=== PATIENT | male | born 1965 | race American Indian/Alaskan Native ===

== ENCOUNTER 2019-04-29 11:17 | Inpatient (IN) | payer OTHER ==
[2019-04-29] VITALS (16 sets, daily range): BP systolic 117–164; BP diastolic 49–96
[~2019-04-29] VITALS: Ht 190.5 cm; Wt 170.0 kg
[2019-04-29] MEDS ORDERED: diphenhydrAMINE 50 mg/ml inj IV ONE (12:25)
[2019-04-29] MEDS ORDERED: metoclopramide 5 mg/ml inj IV ONE (12:25)
[2019-04-29] MEDS ORDERED: glycopyrrolate 0.2mg/ml inj IV ONE (12:25)
[2019-04-29] MEDS ORDERED: ketorolac trometh. 30mg/ml inj. IV ONE (12:25)
[2019-04-29] MEDS ORDERED: normal saline 1000ML IV soln IVB ONE ×2 (12:25)
[2019-04-29 12:29] LABS: BASOPHILS % (AUTO) 0.2 % (0-1); EOSINOPHILS % (AUTO) 0.1 % (0-6); HEMATOCRIT 43.8 % (42.0-52.0); HEMOGLOBIN 14.7 g/dl (14.0-17.9); LYMPHOCYTES # (AUTO) 1.9 X10'3 (1.1-4.8); LYMPHOCYTES % (AUTO) 10.5 % (21-51); MEAN CORPUSCULAR HGB CONC 33.5 g/dL (33.0-36.5); MEAN CORPUSCULAR VOLUME 83.7 FL (78-98); MEAN PLATELET VOLUME 7.5 FL (7.4-10.4); MONOCYTES # (AUTO) 0.7 X10'3 (0-0.9); MONOCYTES % (AUTO) 3.9 % (2-12); NEUTROPHILS % (AUTO) 85.3 % (42-75); PLATELET COUNT 411 X10'3 (140-440); RED BLOOD COUNT 5.23 X10'6 (4.70-6.10); RED CELL DISTRIBUTION WIDTH 14.4 % (11.5-14.5); WHITE BLOOD COUNT 17.6 X10'3 (4.5-11.0)
[2019-04-29 12:39] LABS: ALANINE AMINOTRANSFERASE 62 U/L (12-78); ALBUMIN 3.6 G/DL (3.4-5.0); ALBUMIN/GLOBULIN RATIO 0.8 (1.1-1.5); ALKALINE PHOSPHATASE 104 IU/L (46-116); ANION GAP 11 (8-16); ASPARTATE AMINO TRANSFERASE 33 U/L (10-37); BILIRUBIN,TOTAL 0.6 MG/DL (0.1-1.0); BLOOD UREA NITROGEN 10 MG/DL (7-18); BUN/CREATININE RATIO 10.6 (5.4-32.0); CHLORIDE 100 MMOL/L (99-107); CREATININE 0.94 MG/DL (0.60-1.10); GLUCOSE 148 MG/DL (70-104); LIPASE 88 U/L (73-393); POTASSIUM 4.2 MMOL/L (3.5-5.1); SODIUM 136 MMOL/L (135-145); TOTAL CARBON DIOXIDE 25.1 MMOL/L (24-32); eGFR 85 ML/MIN
[2019-04-29] MEDS ORDERED: piperacillin/tazo 3.375gm/50ml 50 ML IV ONE (12:50)
[2019-04-29] MEDS ORDERED: iohexol 300mg/ml 100ml inj. ONE (13:02)
--- NOTE | 2019-04-29 13:09 | NUR ---
PT TO CT
[2019-04-29] MEDS: MESSAGE TO NURSING PO NR (13:15)
[2019-04-29] MEDS: normal saline 1000ml 1,000 ML IV SCH (14:14)
[2019-04-29] MEDS ORDERED: ondansetron/PF 4mg/2ml inj IV PRN ×3 (14:15→18:50)
[2019-04-29] MEDS ORDERED: magnesium 2GM in 50ml NS 50 ML IV PRN (14:15)
[2019-04-29] MEDS ORDERED: HYDROcodone/acetaminophen 5mg/325mg tablet PO PRN (14:15)
[2019-04-29] MEDS ORDERED: mag hydrox/Alum hydrox/simeth 30ml oral suspension PO PRN (14:15)
[2019-04-29] MEDS ORDERED: potassium CL 10mEq/100ml bag 100 ML IV PRN ×2 (14:15)
[2019-04-29] MEDS ORDERED: magnesium hydroxide 30ml (MOM) UD suspension PO PRN (14:15)
[2019-04-29] MEDS ORDERED: acetaminophen 325mg tablet PO PRN ×2 (14:15)
[2019-04-29] MEDS ORDERED: morphine 2 MG/ML inj. syringe IV PRN ×2 (14:15)
[2019-04-29] MEDS ORDERED: magnesium 4gm in 100ml NS 100 ML IV PRN (14:15)
[2019-04-29] MEDS ORDERED: potassium Cl 20 mEq SR tablet PO PRN ×2 (14:15)
[2019-04-29] MEDS ORDERED: magnesium Cl slow-release 64mg tablet PO PRN (14:15)
[2019-04-29] MEDS ORDERED: METO25TA6 PO (14:47)
[2019-04-29] MEDS ORDERED: BUSP15TA3 PO (14:47)
[2019-04-29] MEDS ORDERED: POTA20TA19 PO (14:47)
[2019-04-29] MEDS ORDERED: METF-950 PO (14:47)
[2019-04-29] MEDS ORDERED: GABA600T13 PO (14:47)
[2019-04-29] MEDS ORDERED: MULT1TAB74 PO (14:47)
[2019-04-29] MEDS ORDERED: FURO40TA4 PO (14:47)
[2019-04-29 15:29] LABS: CLARITY,URINE CLEAR (Clear); COLOR,URINE YELLOW (Yellow); GLUCOSE, URINE NEGATIVE (Neg); KETONES,URINE NEGATIVE (Neg); LEUKOCYTE ESTERASE ,URINE NEGATIVE (Neg); NITRITES, URINE NEGATIVE (Neg); OCCULT BLOOD,URINE TRACE-INTACT (Neg); PH,URINE 5.5 (4.8-8.0); PROTEIN,URINE NEGATIVE (Neg); UROBILINOGEN,URINE 0.2 E.U/dL (0.2-1.0)
[2019-04-29 15:34] LABS: UA COLLECTION TYPE CLN CATCH MIDSTREAM
[2019-04-29 15:35] LABS: BACTERIA,URINE FEW /HPF (Neg); MUCUS STRANDS FEW /LPF (Neg); RBC,URINE 0-2 /HPF (0-2); SQUAMOUS EPITHELIAL CELL,UR FEW /LPF (FEW); WBC,URINE 0-4 /HPF (0-4)
[2019-04-29] MEDS ORDERED: proCHLORperazine 10 MG/2 ml inj IV PRN (16:25)
[2019-04-29] MEDS ORDERED: meperidine/PF 25mg/ml syringe IV PRN ×3 (16:25)
[2019-04-29] MEDS ORDERED: morphine 4 MG/ML inj SYRINge IV PRN ×2 (16:25)
[2019-04-29] MEDS ORDERED: ringers solution, lacted 1,000 ML IV SCH (16:25)
[2019-04-29] MEDS ORDERED: BUPIVAcaine/PF 2.5 mg/ml (0.25%) 30ml vial ONE (16:30)
[2019-04-29] MEDS ORDERED: ceFAZolin 1000mg inj ONE (16:30)
[2019-04-29] MEDS ORDERED: fentaNYL/PF 50MCG/1 ML 2ML syringe ONE ×2 (16:35→17:35)
[2019-04-29] MEDS ORDERED: midazolam 2 mg/2 ml injection ONE (16:36)
[2019-04-29] MEDS ORDERED: LIDOcaine 2% (20mg/ml) 5ml vial ONE (16:37)
[2019-04-29] MEDS ORDERED: propofol inj 20 ML IV ONE (16:37)
[2019-04-29] MEDS ORDERED: dexamethasone sod phosphate 10mg/ml inj ONE (17:00)
[2019-04-29] MEDS ORDERED: acetaminophen 1000 MG/100ml vial IV ONE (17:00)
[2019-04-29] MEDS ORDERED: desflurane 240ml liquid inh. IH ONE (17:00)
[2019-04-29] MEDS ORDERED: rocuronium 10mg/ml inj IV ONE (17:19)
[2019-04-29] MEDS ORDERED: ketorolac trometh. 30mg/ml inj. ONE (17:26)
[2019-04-29] MEDS ORDERED: ondansetron/PF 4mg/2ml inj ONE (17:26)
[2019-04-29] MEDS ORDERED: ceFOXitin 1000 MG inj ONE ×2 (17:27)
[2019-04-29] MEDS ORDERED: ceFOXitin 2 GM ADDVANTGE BAG 50 ML IV ONE (17:29)
--- NOTE | 2019-04-29 19:19 | NUR ---
ADMITTED TO PACU FROM OR ACCOMPANIED BY ANESTHESIA. INTIAL PHYSICAL ASSESSMENT DONE AND RECORDED. REPORT RECEIVED FROM ANESTHESIA.
[2019-04-29] MEDS: K and/or MAG REPLACEMENT MC SCH (20:00)
[2019-04-29] MEDS ORDERED: heparin, porcine 5000 units/ml vial SQ SCH (20:00)
--- NOTE | 2019-04-29 20:00 | NUR ---
pt arrived to floor, in no apparent distress. VSS, call light in reach, 2x rails up, BLL. will continue to monitor
--- NOTE | 2019-04-29 20:05 | NUR ---
PACU DISCHARGE CRITERIA MET, REPORT GIVEN TO FLOOR. DENIES PAIN OR DISCOMFORT, TRANSFERRED TO ROOM IN STABLE GOOD CONDITION.
[2019-04-29] MEDS ORDERED: MESSAGE TO PHARMACY PO ONE (20:45)
[2019-04-29] MEDS ORDERED: glucagon, human recombinant 1mg kit SUBCUT PRN (20:45)
[2019-04-29] MEDS ORDERED: dextrose ORAL solution 15 GM/59 ML bottle PO PRN ×2 (20:45)
[2019-04-29] MEDS ORDERED: insulin Lispro (HumaLOG) vial - multi-dose SQ SCH (20:45)
[2019-04-29] MEDS ORDERED: dextrose 50%-water 50ml dispensing syringe IV PRN ×2 (20:45)
[2019-04-29] MEDS: insulin glargine (Lantus) pen - multi-dose SQ SCH (21:00)
[2019-04-29] MEDS ORDERED: busPIRone 15mg tablet PO ONE (21:05)
[2019-04-29] MEDS ORDERED: metoprolol tartrate 25mg tablet PO ONE (21:05)
[2019-04-29] MEDS: gabapentin 300mg capsule PO SCH (21:16)
[2019-04-29 21:17] LABS: HEMOGLOBIN A1C 6.8 % (4.5-6.2)
[2019-04-29] MEDS: piperacillin/tazo 3.375gm/50ml 50 ML IV SCH (21:17)
[2019-04-29] MEDS ORDERED: ASPI-1265 PO (23:44)
[2019-04-29] MEDS ORDERED: FIBER PO (23:44)
[2019-04-30] VITALS: BP 133/58
[2019-04-30] MEDS ORDERED: piperacillin/tazo 3.375gm/50ml 50 ML IV SCH
[2019-04-30] MEDS: HYDROcodone/acetaminophen 10/325mg tab PO PRN ×4 (00:03→22:31)
[2019-04-30] MEDS: normal saline 1000ml 1,000 ML IV SCH (00:14)
--- NOTE | 2019-04-30 02:05 | NUR ---
pharmacy notifed of delayed zosyn administration due to pt being in procedure. said to skip 0000 dose
[2019-04-30 05:10] LABS: BASOPHILS % (AUTO) 0.4 % (0-1); EOSINOPHILS % (AUTO) 0 % (0-6); HEMATOCRIT 37.1 % (42.0-52.0); HEMOGLOBIN 12.4 g/dl (14.0-17.9); LYMPHOCYTES % (AUTO) 15.6 % (21-51); MEAN CORPUSCULAR HEMOGLOBIN 27.9 PG (27.0-31.0); MEAN CORPUSCULAR HGB CONC 33.4 g/dL (33.0-36.5); MEAN CORPUSCULAR VOLUME 83.7 FL (78-98); MEAN PLATELET VOLUME 7.7 FL (7.4-10.4); MONOCYTES # (AUTO) 0.7 X10'3 (0-0.9); MONOCYTES % (AUTO) 5.2 % (2-12); NEUTROPHILS # (AUTO) 9.9 X10'3 (1.8-7.7); NEUTROPHILS % (AUTO) 78.8 % (42-75); PLATELET COUNT 345 X10'3 (140-440); RED BLOOD COUNT 4.43 X10'6 (4.70-6.10); RED CELL DISTRIBUTION WIDTH 14.8 % (11.5-14.5); WHITE BLOOD COUNT 12.6 X10'3 (4.5-11.0)
[2019-04-30 05:16] LABS: ALBUMIN 2.9 G/DL (3.4-5.0); ANION GAP 4 (8-16); BLOOD UREA NITROGEN 10 MG/DL (7-18); BUN/CREATININE RATIO 10.3 (5.4-32.0); CALCIUM 8.4 MG/DL (8.5-10.1); CHLORIDE 103 MMOL/L (99-107); CREATININE 0.97 MG/DL (0.60-1.10); GLUCOSE 159 MG/DL (70-104); MAGNESIUM 1.9 MG/DL (1.5-2.4); POTASSIUM 4.4 MMOL/L (3.5-5.1); SODIUM 136 MMOL/L (135-145); TOTAL CARBON DIOXIDE 29.5 MMOL/L (24-32); eGFR 82 ML/MIN
--- NOTE | 2019-04-30 05:36 | NUR ---
pt ambulated 600'
--- NOTE | 2019-04-30 06:22 | NUR ---
report given to JUSTINA Novoa
--- NOTE | 2019-04-30 06:28 | NUR ---
Patient in room [facility]. I have received report from Xavier HORN and had the opportunity to ask questions and assume patient care.
[2019-04-30 06:56] VITALS: BP 120/77
[2019-04-30] MEDS: piperacillin/tazo 3.375gm/50ml 50 ML IV SCH ×4 (07:41→23:06)
[2019-04-30] MEDS: multivitamins, therapeutics tablet PO SCH (07:46)
[2019-04-30] MEDS: gabapentin 300mg capsule PO SCH ×3 (07:46→20:55)
[2019-04-30] MEDS: potassium Cl 20 mEq SR tablet PO SCH (07:46)
[2019-04-30] MEDS: metoprolol tartrate 25mg tablet PO SCH ×2 (07:47→19:22)
[2019-04-30] MEDS: furosemide 40mg tablet PO SCH (07:48)
[2019-04-30] MEDS: busPIRone 15mg tablet PO SCH ×2 (07:48→19:20)
[2019-04-30] MEDS: K and/or MAG REPLACEMENT MC SCH ×2 (08:00→19:08)
[2019-04-30] MEDS ORDERED: pneumococcal 23-VAL P-sac vacc 25 mcg/0.5ml vial IMVAC ONE (10:00)
[2019-04-30] MEDS: MESSAGE TO NURSING PO NR (10:00)
[2019-04-30 11:09] VITALS: BP 120/64
[2019-04-30 18:00] VITALS: BP 127/78
--- NOTE | 2019-04-30 18:47 | NUR ---
Problems reprioritized. Patient report given, questions answered & plan of care reviewed with Xavier HORN.
[2019-04-30] MEDS: lactobacillus rhamnosus 10,000 MMU CELLS/CAPSULE PO SCH (19:20)
[2019-04-30] MEDS: insulin glargine (Lantus) pen - multi-dose SQ SCH (21:00)
[2019-05-01] VITALS: BP 108/68
[2019-05-01] MEDS: HYDROcodone/acetaminophen 10/325mg tab PO PRN ×3 (05:30→21:44)
[2019-05-01 06:11] LABS: BASOPHILS # (AUTO) 0.1 X10'3 (0-0.2); BASOPHILS % (AUTO) 0.7 % (0-1); EOSINOPHILS # (AUTO) 0.7 X10'3 (0-0.9); EOSINOPHILS % (AUTO) 5.4 % (0-6); HEMATOCRIT 36.6 % (42.0-52.0); HEMOGLOBIN 12.4 g/dl (14.0-17.9); LYMPHOCYTES # (AUTO) 3.3 X10'3 (1.1-4.8); LYMPHOCYTES % (AUTO) 26.1 % (21-51); MEAN CORPUSCULAR HEMOGLOBIN 28.6 PG (27.0-31.0); MEAN CORPUSCULAR HGB CONC 33.7 g/dL (33.0-36.5); MEAN CORPUSCULAR VOLUME 84.9 FL (78-98); MEAN PLATELET VOLUME 7.7 FL (7.4-10.4); MONOCYTES % (AUTO) 7.7 % (2-12); NEUTROPHILS # (AUTO) 7.7 X10'3 (1.8-7.7); NEUTROPHILS % (AUTO) 60.1 % (42-75); PLATELET COUNT 328 X10'3 (140-440); RED BLOOD COUNT 4.32 X10'6 (4.70-6.10); RED CELL DISTRIBUTION WIDTH 14.6 % (11.5-14.5); WHITE BLOOD COUNT 12.8 X10'3 (4.5-11.0)
[2019-05-01 06:15] LABS: ALBUMIN 2.9 G/DL (3.4-5.0); ANION GAP 9 (8-16); BLOOD UREA NITROGEN 12 MG/DL (7-18); BUN/CREATININE RATIO 12.5 (5.4-32.0); CALCIUM 7.9 MG/DL (8.5-10.1); CHLORIDE 102 MMOL/L (99-107); CREATININE 0.96 MG/DL (0.60-1.10); GLUCOSE 127 MG/DL (70-104); POTASSIUM 3.5 MMOL/L (3.5-5.1); SODIUM 139 MMOL/L (135-145); TOTAL CARBON DIOXIDE 28.4 MMOL/L (24-32); eGFR 83 ML/MIN
--- NOTE | 2019-05-01 06:56 | NUR ---
Patient in room [facility]. I have received report from Xavier HORN and had the opportunity to ask questions and assume patient care.
[2019-05-01] MEDS: piperacillin/tazo 3.375gm/50ml 50 ML IV SCH ×3 (07:57→23:25)
[2019-05-01] MEDS: busPIRone 15mg tablet PO SCH ×2 (07:57→20:20)
[2019-05-01] MEDS: lactobacillus rhamnosus 10,000 MMU CELLS/CAPSULE PO SCH ×2 (07:58→20:20)
[2019-05-01] MEDS: multivitamins, therapeutics tablet PO SCH (07:58)
[2019-05-01] MEDS: metoprolol tartrate 25mg tablet PO SCH ×2 (07:58→20:19)
[2019-05-01] MEDS: gabapentin 300mg capsule PO SCH ×3 (07:59→20:20)
[2019-05-01] MEDS: potassium Cl 20 mEq SR tablet PO SCH (07:59)
[2019-05-01] MEDS: furosemide 40mg tablet PO SCH (07:59)
[2019-05-01] MEDS: K and/or MAG REPLACEMENT MC SCH ×2 (08:00→20:00)
[2019-05-01] MEDS: MESSAGE TO NURSING PO NR (10:00)
[2019-05-01 10:07] VITALS: BP 112/72
[2019-05-01] MEDS ORDERED: SINCALIDE IV ONE (12:15)
[2019-05-01] MEDS ORDERED: NORMAL SALINE IV ONE (12:15)
--- NOTE | 2019-05-01 15:09 | NUR ---
DM consult: Per consult pt is a new DM dx however per [facility] pt was diagnosed prior to this admit in February. A1c is 6.8, DM education not warranted at this time. Will continue to follow. Addendum: 05/01/19 at [address] Amended: Links added.
[2019-05-01 18:00] VITALS: BP 119/75
--- NOTE | 2019-05-01 19:54 | NUR ---
Problems reprioritized. Patient report given, questions answered & plan of care reviewed with Izaiah HORN.
--- NOTE | 2019-05-01 19:55 | NUR ---
Patient in room [facility]. I have received report from JUSTINA Padilla and had the opportunity to ask questions and assume patient care.
[2019-05-01] MEDS: insulin glargine (Lantus) pen - multi-dose SQ SCH (21:00)
[2019-05-02] VITALS: BP 109/72
[2019-05-02] MEDS: HYDROcodone/acetaminophen 10/325mg tab PO PRN ×3 (03:47→14:06)
[2019-05-02 05:38] LABS: BASOPHILS # (AUTO) 0.1 X10'3 (0-0.2); BASOPHILS % (AUTO) 0.6 % (0-1); EOSINOPHILS # (AUTO) 0.8 X10'3 (0-0.9); EOSINOPHILS % (AUTO) 6.2 % (0-6); HEMATOCRIT 35.8 % (42.0-52.0); HEMOGLOBIN 11.9 g/dl (14.0-17.9); LYMPHOCYTES # (AUTO) 2.7 X10'3 (1.1-4.8); LYMPHOCYTES % (AUTO) 21.6 % (21-51); MEAN CORPUSCULAR HGB CONC 33.4 g/dL (33.0-36.5); MEAN CORPUSCULAR VOLUME 83.9 FL (78-98); MEAN PLATELET VOLUME 7.3 FL (7.4-10.4); MONOCYTES % (AUTO) 8.2 % (2-12); NEUTROPHILS % (AUTO) 63.4 % (42-75); PLATELET COUNT 338 X10'3 (140-440); RED BLOOD COUNT 4.27 X10'6 (4.70-6.10); RED CELL DISTRIBUTION WIDTH 14.5 % (11.5-14.5); WHITE BLOOD COUNT 12.6 X10'3 (4.5-11.0)
[2019-05-02 05:44] LABS: ALBUMIN 2.8 G/DL (3.4-5.0); ANION GAP 3 (8-16); BLOOD UREA NITROGEN 10 MG/DL (7-18); CALCIUM 8.3 MG/DL (8.5-10.1); CHLORIDE 103 MMOL/L (99-107); GLUCOSE 120 MG/DL (70-104); MAGNESIUM 2.1 MG/DL (1.5-2.4); POTASSIUM 3.8 MMOL/L (3.5-5.1); SODIUM 138 MMOL/L (135-145); TOTAL CARBON DIOXIDE 32.5 MMOL/L (24-32); eGFR 79 ML/MIN
--- NOTE | 2019-05-02 06:10 | NUR ---
Patient in room [facility]. I have received report from Izaiah HORN and had the opportunity to ask questions and assume patient care.
--- NOTE | 2019-05-02 06:30 | NUR ---
Problems reprioritized. Patient report given, questions answered & plan of care reviewed with David Howard.
[2019-05-02 07:03] VITALS: BP 130/86
[2019-05-02] MEDS: K and/or MAG REPLACEMENT MC SCH (08:00)
[2019-05-02] MEDS: gabapentin 300mg capsule PO SCH ×2 (08:38→12:25)
[2019-05-02] MEDS: furosemide 40mg tablet PO SCH (08:40)
[2019-05-02] MEDS: busPIRone 15mg tablet PO SCH (08:40)
[2019-05-02] MEDS: metoprolol tartrate 25mg tablet PO SCH (08:40)
[2019-05-02] MEDS: lactobacillus rhamnosus 10,000 MMU CELLS/CAPSULE PO SCH (08:41)
[2019-05-02] MEDS: piperacillin/tazo 3.375gm/50ml 50 ML IV SCH (08:41)
[2019-05-02] MEDS: multivitamins, therapeutics tablet PO SCH (08:41)
[2019-05-02] MEDS: potassium Cl 20 mEq SR tablet PO SCH (08:41)
[2019-05-02] MEDS ORDERED: METR-159 PO (10:59)
[2019-05-02] MEDS ORDERED: CIPR-259 PO (10:59)
[2019-05-02] MEDS ORDERED: ONDA4TAB6 PO (10:59)
[2019-05-02 11:00] VITALS: BP 151/84
[2019-05-02] MEDS ORDERED: HYDR-4383 PO (12:33)
--- NOTE | 2019-05-02 15:18 | NUR ---
Patient discharged with all belongings. Patient discharge paperwork gone over with pt and signed. Patient had the opportunity to ask questions. Pt walked to front lobby with PCT. Family to take pt home. IV taken out.
== END 2019-05-02 15:05 | disposition home or self-care (01) | DRG 418 ==
LOC: ER 11:18 → ED HOLD 14:14 → EDBEDREQ 16:26 → CMPBEDREQ 19:42 → SUR 3N 19:43
PROVIDERS: ADMIT Hospitalist; ATTEND Internal Medicine
PROC: 0DNW4ZZ Release Peritoneum, Percutaneous Endoscopic Approach (ICD-10-PCS; 2019-04-29)
PROC: 0FT44ZZ Resection of Gallbladder, Percutaneous Endoscopic Approach (ICD-10-PCS; principal; 2019-04-29 17:00)
PROC: 3E0234Z Introduction of Serum, Toxoid and Vaccine into Muscle, Percutaneous Approach (ICD-10-PCS; 2019-04-30)
DX: K80.00 Calculus of gallbladder with acute cholecystitis without obstruction (principal); K50.90 Crohn's disease, unspecified, without complications; L03.316 Cellulitis of umbilicus; K66.0 Peritoneal adhesions (postprocedural) (postinfection); E11.9 Type 2 diabetes mellitus without complications; E66.9 Obesity, unspecified; K76.0 Fatty (change of) liver, not elsewhere classified; Z87.891 Personal history of nicotine dependence; Z23 Encounter for immunization; Z91.010 Allergy to peanuts; Z88.8 Allergy status to other drugs, medicaments and biological substances; Z91.018 Allergy to other foods
CPT/HCPCS: 96365; 96375; 99285; Z7506; Z7508; 36415; 74177; 76700; 78226; 80048; 80053; 81001; 82948; 83036; 83690; 83735; 85025; 86885; 86900; 86901; 87081; 90732; A4215; A4618; A6402; A7000; A9537; G0378; J0131; J0690; J0694; J1100; J1200; J1815; J1885; J2001; J2175; J2250; J2270; J2405; J2543; J2704; J2765; J2805; J3010; J3490; J7030; J7120; Q9967